=== PATIENT | female | born 1980 | race Caucasian/White ===

== ENCOUNTER 2022-11-11 11:50 | Emergency (ER) | payer MEDICARE, MEDICAID ==
[~2022-11-11] VITALS: Ht 167.6 cm; Wt 80.0 kg
[~2022-11-11 11:50] MED LIST: ALBU8.5H17 IH; ATEN25TA PO; IBUP-1984 PO; SYN0.025T PO
[2022-11-11 12:36] LABS: BASOPHILS % (AUTO) 0.3 % (0-1); EOSINOPHILS # (AUTO) 0.1 X10'3 (0-0.9); HEMATOCRIT 38.5 % (35.0-45.0); LYMPHOCYTES # (AUTO) 2.4 X10'3 (1.1-4.8); MONOCYTES # (AUTO) 0.4 X10'3 (0-0.9)
[2022-11-11 12:38] LABS: EOSINOPHILS % (AUTO) 1.7 % (0-6); HEMOGLOBIN 12.5 g/dl (12.0-16.0); LYMPHOCYTES % (AUTO) 32.1 % (21-51); MEAN CORPUSCULAR HGB CONC 32.4 g/dL (33.0-36.5); MEAN CORPUSCULAR VOLUME 83.4 FL (78-98); MEAN PLATELET VOLUME 8.5 FL (7.4-10.4); MONOCYTES % (AUTO) 4.9 % (2-12); NEUTROPHILS # (AUTO) 4.6 X10'3 (1.8-7.7); PLATELET COUNT 272 X10'3 (140-440); RED BLOOD COUNT 4.62 X10'6 (4.20-5.60); WHITE BLOOD COUNT 7.5 X10'3 (4.5-11.0)
[2022-11-11 13:11] LABS: ALANINE AMINOTRANSFERASE 22 U/L (12-78); ALBUMIN 3.5 G/DL (3.4-5.0); ALKALINE PHOSPHATASE 112 IU/L (46-116); ANION GAP 10 (8-16); ASPARTATE AMINO TRANSFERASE 20 U/L (10-37); BILIRUBIN,TOTAL 0.4 MG/DL (0.1-1.0); BLOOD UREA NITROGEN 10 MG/DL (7-18); BUN/CREATININE RATIO 14.9 (10.0-20.0); CALCIUM 9.3 MG/DL (8.5-10.1); CHLORIDE 105 MMOL/L (99-107); CREATININE 0.67 MG/DL (0.40-0.90); GLUCOSE 128 MG/DL (70-104); POTASSIUM 3.7 MMOL/L (3.5-5.1); SODIUM 140 MMOL/L (135-145); THYROID STIMULATING HORMONE 1.64 ulU/ml (0.34-4.50); TOTAL CARBON DIOXIDE 25.2 MMOL/L (24-32); eCRCL 100 ML/MIN; eGFR > 90 ML/MIN
[2022-11-11 14:36] LABS: BILIRUBIN,URINE NEGATIVE (Neg); CLARITY,URINE SLIGHTLY CLOUDY (Clear); COLOR,URINE YELLOW (Yellow); GLUCOSE, URINE NEGATIVE (Neg); KETONES,URINE TRACE mg/dl (Neg); LEUKOCYTE ESTERASE ,URINE NEGATIVE (Neg); NITRITES, URINE NEGATIVE (Neg); OCCULT BLOOD,URINE NEGATIVE (Neg); PROTEIN,URINE NEGATIVE (Neg)
[2022-11-11 14:48] LABS: UA COLLECTION TYPE NON-SPECIFIED
[2022-11-11 14:49] LABS: WBC,URINE 0-4 /HPF (0-4)
[2022-11-11 14:50] LABS: BACTERIA,URINE FEW /HPF (Neg); CAL OXALATE CRYSTALS 2+ /HPF (NEGATIVE); RBC,URINE NONE SEEN /HPF (0-2); SQUAMOUS EPITHELIAL CELL,UR NONE SEEN /LPF (FEW)
[2022-11-11 15:17] LABS: URINE AMPHETAMINE SCREEN NEGATIVE (Neg); URINE BARBITUATE SCREEN NEGATIVE (Neg); URINE BENZODIAZEPINES SCREEN NEGATIVE (Neg); URINE CANNABINOID SCREEN NEGATIVE (Neg); URINE COCAINE SCREEN NEGATIVE (Neg); URINE METHADONE SCREEN NEGATIVE (Neg); URINE OPIATE SCREEN NEGATIVE (Neg); URINE PHENCYCLIDINE SCREEN NEGATIVE (Neg)
--- NOTE | 2022-11-11 15:32 | NUR ---
Patient is quiet until you speak to patient. Patient appears hypomanic. Patient states people are wanting her to pay their bills. Patient believes she is being poisoned with morphine to create babies inside of her. Patient believes (what she describes as her payee) is getting her confused and not handling the money correctly. Patient also states Dr. Lujan placed her on a 5150 when she was still in the womb and then patient starts sucking her thumb. Patient is on a 5150 by [facility]. Continue to monitor.
[2022-11-11] MEDS ORDERED: LAMO100T2 PO (15:49)
[2022-11-11] MEDS ORDERED: PALI234D IM (15:49)
[2022-11-11] MEDS ORDERED: PALI3TAB5 PO (15:49)
--- NOTE | 2022-11-11 15:50 | NUR ---
Patient packet faxed to [facility]
--- NOTE | 2022-11-11 15:50 | NUR ---
Patient takes Lamictal for seizures. Last seizure patient states was 19 years ago. Per External Med Record, patient is currently on Lacmictal. Patient states she is not on medication. RN walked away and patient started with an angry rant about her seizures and then got tearful. Patient states her mother is Deepthi Caceres but does not know her phone number because she lost her phone. Continue to monitor.
--- NOTE | 2022-11-11 15:53 | NUR ---
Pt was witnessed speaking to herself following a conversation with the RN. The patient was stating to herself "Fucking seizure medication. Don't they know I am named after marco alcantar. The baby." Pt was witnessed to then begin crying before returning to cussing. Nurse was made aware.
--- NOTE | 2022-11-11 15:55 | NUR ---
HX pace maker X 19 years.
--- NOTE | 2022-11-11 16:55 | NUR ---
HX of Intellectual Delay, Seizures. Patient at [facility]. Left message for medical staff to find specifically patient's diagnosis. Patient has [facility] and a "SOS" worker to assist patient at home. Unknown hours. Patient states she lives at home with her boyfriend and her cat.
--- NOTE | 2022-11-11 19:02 | NUR ---
The patient is resting on her bed
[2022-11-11] MEDS: lamoTRIgine 100mg tablet PO SCH (20:14)
--- NOTE | 2022-11-11 21:39 | NUR ---
The patient appears to be sleeping. She did awaken briefly to take her lamicatal and then complained of being tired and went right back to sleep
--- NOTE | 2022-11-11 23:00 | NUR ---
The patient appears to be sleeping
--- NOTE | 2022-11-12 00:04 | NUR ---
The patient up to use the bathroom
--- NOTE | 2022-11-12 01:19 | NUR ---
The patient was laying in her bed talking and laughing to herself but now appears to be sleeping
--- NOTE | 2022-11-12 02:11 | NUR ---
[facility] CONTACTED [facility]; NO AVAILABLE ROOMS AT THIS TIME. PT WILL BE ADDED TO QUEUE
--- NOTE | 2022-11-12 02:58 | NUR ---
The patient resting on her bed but awake laughing and talking to herself
--- NOTE | 2022-11-12 05:39 | NUR ---
The patient has been sleeping off and on. She periodically can be heard talking and laughing to herself
--- NOTE | 2022-11-12 06:55 | NUR ---
Patient is awake and keeping herself busy, using the restroom, drinking water. No distress observed. Continue to monitor.
[2022-11-12] MEDS ORDERED: PALIPERIDONE 3 MG TAB.ER.24 PO SCH (08:00)
--- NOTE | 2022-11-12 08:14 | NUR ---
Patient eating breakfast. No distress observed. Continue to monitor.
[2022-11-12] MEDS: lamoTRIgine 100mg tablet PO SCH (08:54)
--- NOTE | 2022-11-12 10:05 | NUR ---
Patient sleeping. No distress observed. Continue to monitor.
--- NOTE | 2022-11-12 12:07 | NUR ---
Patient eating lunch. No distress observed. Continue to monitor.
--- NOTE | 2022-11-12 13:01 | NUR ---
Patient chatting with peer next door. Both are autistic. Continue to monitor.
--- NOTE | 2022-11-12 13:25 | NUR ---
Mom, Lacie [phone] (lives in [place]). Dad, Juan Antonio Davis [phone] (live 1.5 hours away) Harry Quispe Registered Nurse Cardiac Telemetry. [phone] Patient's Address [address] [place] [address] [address] [facility] Coordinator, [place]
[2022-11-12 13:28] LABS: URINE HCG NEGATIVE (NEG)
--- NOTE | 2022-11-12 15:11 | NUR ---
Patient sleeping prone. Nonlabored respirations. Continue to monitor.
[2022-11-12 15:50] VITALS: BP 143/80; PULSE 70; RESP 18; TEMP 98.2; O2SAT 99
--- NOTE | 2022-11-12 17:15 | NUR ---
Patient awaiting cdl bulk driver to take her to [facility]. No distress observed. Continue to monitor.
[2022-11-12] MEDS ORDERED: ibuprofen 200mg tablet PO ONE (17:40)
== END 2022-11-12 17:45 ==
LOC: ER 11:51
DX: Z73.6 Limitation of activities due to disability (principal); Z20.822 Contact with and (suspected) exposure to COVID-19; F31.9 Bipolar disorder, unspecified; Z88.0 Allergy status to penicillin; Z91.041 Radiographic dye allergy status; Z79.899 Other long term (current) drug therapy
CPT/HCPCS: 36415; 80053; 80305; 81001; 81025; 84443; 85025; 87811; 99285